=== PATIENT | female | born 1945 | race Caucasian/White ===

== ENCOUNTER 2017-10-15 13:20 | Emergency (ER) | payer MEDICARE, OTHER ==
[~2017-10-15] VITALS: Ht 160 cm; Wt 112.5 kg
[2017-10-15] MEDS ORDERED: METOPROLOL SUCC25 MG PO (13:41)
[2017-10-15] MEDS ORDERED: ESTRACE0.5 MG PO (13:42)
[2017-10-15] MEDS ORDERED: LEVOTHYROXINE25 MCG PO (13:42)
[2017-10-15] MEDS ORDERED: ASPIR 8181 MG PO (13:42)
[2017-10-15] MEDS ORDERED: CENTRUM SILVER1 EAC3 PO (13:43)
[2017-10-15] MEDS ORDERED: ZITHROMAX250 MG PO (14:06)
[2017-10-15] MEDS ORDERED: NORCO 5-325 TA1 EACH PO (14:06)
== END 2017-10-15 14:18 | disposition home or self-care (01) ==
LOC: ED 13:20
DX: M26.603 Bilateral temporomandibular joint disorder, unspecified (principal); J32.9 Chronic sinusitis, unspecified; I10 Essential (primary) hypertension; E03.9 Hypothyroidism, unspecified; Z88.5 Allergy status to narcotic agent; Z88.8 Allergy status to other drugs, medicaments and biological substances; Z79.82 Long term (current) use of aspirin; Z79.899 Other long term (current) drug therapy
CPT/HCPCS: 99283